=== PATIENT | female | born 1950 | race Caucasian/White ===

== ENCOUNTER 2017-11-23 13:55 | Emergency (ER) | payer SELFPAY ==
[~2017-11-23] VITALS: Ht 175.3 cm; Wt 70.6 kg
[2017-11-23 14:37] LABS: BASOPHILS # (AUTO) 0.12 x10^3/uL (0-0.1); BASOPHILS % (AUTO) 1 % (0-1); EOSINOPHILS # (AUTO) 0.07 x10^3/uL (0-0.4); EOSINOPHILS % (AUTO) 1 % (1-7); LYMPHOCYTES # (AUTO) 1.29 x10^3/uL (1-3.4); LYMPHOCYTES % (AUTO) 14 % (22-44); MD NO; MEAN CORPUSCULAR HEMOGLOBIN 30.2 pg (27.0-34.8); MEAN CORPUSCULAR HGB CONC 32.4 g/dL (32.4-35.8); MEAN CORPUSCULAR VOLUME 93.3 fL (80-100); MEAN PLATELET VOLUME 7.5 fL (7.4-10.4); MONOCYTES # (AUTO) 0.71 x10^3/uL (0.2-0.8); MONOCYTES % (AUTO) 8 % (2-9); NEUTROPHILS # (AUTO) 7.37 x10^3/uL (1.8-6.8); NEUTROPHILS % (AUTO) 77 % (42-75); PLATELET COUNT 389 x10^3/uL (130-400); RED BLOOD COUNT 4.33 x10^6/uL (3.82-5.3); RED CELL DISTRIBUTION WIDTH 18.3 % (9.6-15.2)
[2017-11-23 14:50] LABS: ALBUMIN 3.9 g/dL (3.4-5.0); ANION GAP 5 mmol/L (5-15); CALCIUM 8.9 mg/dL (8.5-10.1); CHLORIDE 104 mmol/L (98-107); CREATININE 0.85 mg/dL (0.55-1.02)
[2017-11-23] MEDS ORDERED: ASPI-650 PO (15:08)
[2017-11-23] MEDS ORDERED: METF500T4 PO (15:08)
[2017-11-23] MEDS ORDERED: LISI-170 PO (15:08)
[2017-11-23] MEDS ORDERED: SERT25TA PO (15:08)
[2017-11-23] MEDS ORDERED: METO25TA35 PO (15:08)
[2017-11-23] MEDS ORDERED: METO50TA82 PO (15:08)
[2017-11-23] MEDS ORDERED: DOXE25CA PO (15:08)
[2017-11-23] MEDS ORDERED: LISI40TA PO (15:08)
[2017-11-23] MEDS ORDERED: CARB1TAB3 PO (15:08)
[2017-11-23] MEDS ORDERED: CLON0.1T PO (15:08)
[2017-11-23] MEDS ORDERED: AMLO10TA2 PO (15:08)
[2017-11-23] MEDS ORDERED: OMNIPAQUE 350 MG/ML, 100ML BOTTLE ONE (15:15)
[2017-11-23] MEDS ORDERED: METHYLNALTREXONE 12 MG/0.6 ML SQ ONE (17:00)
[2017-11-23 17:24] LABS: MICROSCOPIC INDICATED
[2017-11-23] MEDS ORDERED: PROPOFOL 10 MG/ML, 20ML IVPush ONE (20:30)
[2017-11-23] MEDS ORDERED: PROPOFOL 10 MG/ML, 20ML ONE (20:45)
[2017-11-23 21:51] VITALS: BP 122/77
== END 2017-11-23 22:15 | disposition home or self-care (01) ==
LOC: ED 18:26
DX: K56.41 Fecal impaction (principal); G20 Parkinson's disease; I10 Essential (primary) hypertension; R79.89 Other specified abnormal findings of blood chemistry
CPT/HCPCS: 36415; 74177; 80048; 81001; 82040; 82962; 85025; 96372; 99152; 99153; 99285; Q9967